=== PATIENT | female | born 1980 ===

== ENCOUNTER 2017-04-26 01:47 | Observation (INO) | payer MEDICAID ==
[2017-04-26 02:03] VITALS: RESP 16; TEMP 97.8; O2SAT 98
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
[2017-04-26 03:16] LABS: BASO # 0.1 K/uL (0.0-0.2); BASO % 0.9 % (0.0-2.0); EOS # 0.1 K/uL (0.0-0.7); EOS % 0.7 % (0.0-4.0); HEMATOCRIT 43.5 % (34.0-47.0); LYMPH # 3.2 K/uL (1.0-4.3); LYMPH % 28.4 % (20.0-40.0); MEAN CELL VOLUME 96.7 fl (81.0-99.0); MEAN CORPUSCULAR HEMOGLOBIN 32.8 pg (27.0-31.0); MEAN CORPUSCULAR HGB CONC 33.9 g/dL (33.0-37.0); MEAN PLATELET VOLUME 7.1 fl (7.2-11.7); MONO # 0.8 K/uL (0.0-0.8); MONO % 7.2 % (0.0-10.0); NEUT % 62.8 % (50.0-75.0); NRBC % 0.1 % (0.0-0.0); RED CELL DISTRIBUTION WIDTH 12.9 % (11.5-14.5); WHITE BLOOD COUNT 11.1 K/uL (4.8-10.8)
[2017-04-26 03:26] LABS: ALB/GLOB RATIO 1.4 (1.0-2.1); ALCOHOL SERUM 101 mg/dl (0-10); ALKALINE PHOSPHATASE 76 U/L (38-126); ALT/SGPT 47 U/L (9-52); AST/SGOT 33 U/L (14-36); BILIRUBIN,TOTAL 0.3 mg/dl (0.2-1.3); BLOOD UREA NITROGEN 10 mg/dl (7-17); CALCIUM 9.4 mg/dL (8.4-10.2); CARBON DIOXIDE 26 mmol/L (22-30); CHLORIDE 108 mmol/L (98-107); GFR AFRICAN-AMERICAN > 60; GLUCOSE,RANDOM 95 mg/dL (65-105); POTASSIUM 4.1 MMOL/L (3.6-5.0); SODIUM 144 mmol/l (132-148); TOTAL PROTEIN 7.3 G/DL (6.3-8.2)
[2017-04-26 03:29] LABS: RBC URINE 8 /hpf (0-3); URINE BACTERIA RARE (<OCC); URINE BILIRUBIN NEGATIVE (NEGATIVE); URINE BLOOD SMALL (NEGATIVE); URINE COLOR YELLOW (YELLOW); URINE GLUCOSE (UA) 50 mg/dL (Normal); URINE KETONE NEGATIVE (NEGATIVE); URINE LEUKOCYTE ESTERASE NEG Leu/uL (Negative); URINE PROTEIN 30 mg/dL (NEGATIVE); URINE UROBILINOGEN 0.2-1.0 mg/dL (0.2-1.0); WBC CLUMPS FEW /hpf; WBC URINE 13 /hpf (0-5)
[2017-04-26 05:26] VITALS: BP 127/64; PULSE 87
[2017-04-26] MEDS ORDERED: Bacitracin 500 Units/gm Oint Foilpak UD ONE (05:32)
--- NOTE | 2017-04-26 05:53 | ED PDOC ---
- Laboratory Results Result Diagrams: 04/26/17 02:48 04/26/17 02:48 - ECG O2 Sat by Pulse Oximetry: 98 Medical Decision Making Medical Decision Makin:00 Patient is signed out to me by Lurdes Sigala PA-C pending evaluation by [facility] [place]. 7:00 Patient is signed out by me to Gerardo Morillo MD pending evaluation by [facility] [place]. Scribe Attestation: Documented by Filomena Gr, acting as a scribe for Zenon Varela MD. Provider Scribe Attestation: All medical record entries made by the Scribe were at my direction and personally dictated by me. I have reviewed the chart and agree that the record accurately reflects my personal performance of the history, physical exam, medical decision making, and the department course for this patient. I have also personally directed, reviewed, and agree with the discharge instructions and disposition. Disposition - Clinical Impression Clinical Impression: Polysubstance abuse - POA Present On Arrival: None - Disposition Referrals: Vicki Lopes FNP [Primary Care Provider] - Disposition: Transfer of Care Disposition Time: 07:00 Condition: STABLE Patient Signed Over To: Gerardo Morillo Handoff Comments: pending eval by [facility]
[2017-04-26] MEDS ORDERED: Tmp-Smz 800 mg-160 mg DS Tab PO STA (07:02)
--- NOTE | 2017-04-26 07:52 | ED PDOC ---
- Laboratory Results Result Diagrams: 04/26/17 02:48 04/26/17 02:48 - ECG O2 Sat by Pulse Oximetry: 98 (RA) Pulse Ox Interpretation: Normal - Progress Re-evaluation Time: 10:59 Condition: Re-examined (Denies SI/HI Awake alert oriented x 3) Medical Decision Making Medical Decision Makin:00 Patient signed over [place] [facility] [place] Scribe Attestation: Documented by Loreto Pierre, acting as a scribe for Gerardo Morillo MD. Provider Scribe Attestation: All medical record entries made by the Scribe were at my direction and personally dictated by me. I have reviewed the chart and agree that the record accurately reflects my personal performance of the history, physical exam, medical decision making, and the department course for this patient. I have also personally directed, reviewed, and agree with the discharge instructions and disposition. Disposition - Clinical Impression Clinical Impression: Polysubstance abuse - POA Present On Arrival: None - Disposition Disposition: Routine/Home Disposition Time: 11:00 Condition: STABLE
--- NOTE | 2017-04-26 10:35 | RAD ---
PROCEDURE: Radiographs of the Right Shoulder HISTORY: Pain, injury COMPARISON: No prior. FINDINGS: BONES: Bone alignment and mineralization are normal. There is no acute displaced fracture or bone destruction. JOINTS: Normal. Glenohumeral and acromioclavicular joints preserved. No osteoarthritis. SOFT TISSUES: Normal. OTHER FINDINGS: None. IMPRESSION: No acute fracture or dislocation.
--- NOTE | 2017-04-26 11:21 | CARD ---
APPROVED REPORT EKG Measurement Heart [id number] <Conclusion> Sinus tachycardia Nonspecific ST abnormality Abnormal ECG
== END 2017-04-26 11:15 | disposition home or self-care (01) ==
LOC: H.ER 01:47 → H.EROBSV 05:18
PROVIDERS: ADMIT Emergency Medicine; ATTEND Emergency Medicine
DX: F19.10 Other psychoactive substance abuse, uncomplicated (principal); F17.200 Nicotine dependence, unspecified, uncomplicated; M25.511 Pain in right shoulder; Z23 Encounter for immunization
CPT/HCPCS: 73030; 80053; 80320; 80324; 80345; 80346; 80349; 80353; 80358; 80361; 81003; 81025; 82948; 83992; 85025; 87086; 90471; 90715; 93005; 99282; G0378